=== PATIENT | female | born 1950 | race Caucasian/White ===

== ENCOUNTER 2022-09-09 07:08 | Emergency (ER) | payer MEDICARE, BC ==
[2022-09-09] MEDS ORDERED: Acetaminophen 325 MG Tab PO ONE (07:37)
== END 2022-09-09 12:20 | disposition home or self-care (01) ==
LOC: JD.ED 07:08
DX: S52.532A Colles' fracture of left radius, initial encounter for closed fracture (principal); W00.0XXA Fall on same level due to ice and snow, initial encounter
CPT/HCPCS: 29125; 73110; 99283; A9270

== ENCOUNTER 2022-09-18 09:15 | Day surgery (SDC) | payer MEDICARE, BC ==
[~2022-09-18 09:15] MED LIST: Lactated Ringers 1,000 ML IV SCH; Lidocaine 1%/Sod Bicarbonate in NS 8.4% 1 ML Syringe IDERM PRN; Sodium Chloride 0.9% 10 ML Syringe FLUSH PRN; Sodium Chloride 0.9% 10 ML Syringe FLUSH SCH
[2022-09-18] MEDS ORDERED: Midazolam 1 MG/ML 2 ML SDV ONE (10:34)
[2022-09-18] MEDS ORDERED: Propofol 200 MG/20 ML SDV ONE (10:35)
[2022-09-18] MEDS ORDERED: Lidocaine 1% 4 ML ONE (10:36)
[2022-09-18] MEDS ORDERED: Ondansetron 4 MG/2 ML SDV ONE (10:43)
[2022-09-18] MEDS ORDERED: HYDROmorphone 0.5 MG/0.5 ML Syringe IVPUSH PRN (11:11)
[2022-09-18] MEDS ORDERED: Ondansetron 4 MG/2 ML SDV IVPUSH PRN (11:11)
[2022-09-18] MEDS ORDERED: fentaNYL 100 MCG/2 ML SDV IVPUSH PRN (11:11)
[2022-09-18] MEDS ORDERED: Acetaminophen 325 MG Tab PO ONE ×2 (11:30→11:45)
== END 2022-09-18 13:05 | disposition home or self-care (01) ==
LOC: JD.SDS 09:15
PROVIDERS: ATTEND Orthopaedic Surgery
DX: S52.502A Unspecified fracture of the lower end of left radius, initial encounter for closed fracture (principal); I10 Essential (primary) hypertension; Z96.641 Presence of right artificial hip joint; Z98.890 Other specified postprocedural states; Z98.1 Arthrodesis status; Z79.899 Other long term (current) drug therapy
CPT/HCPCS: 25605; 76000; A9270; J1170; J2250; J2405; J2704; J3010; J7120; 01820; 99100